=== PATIENT | male | born 1975 | race Caucasian/White ===

== ENCOUNTER 2016-09-05 20:03 | Emergency (ER) | payer OTHER ==
[2016-09-05 20:31] VITALS: BP 121/71; PULSE 64; TEMP 97.8; BMI 25.7
--- NOTE | 2016-09-05 22:24 | PDOC ---
History of Present Illness - General Chief Complaint: Respiratory Stated Complaint: SOB/HEADACHE Time Seen by Provider: 09/05/16 22:23 Past History - Past Medical History Allergies/Adverse Reactions: Allergies Allergy/AdvReac Type Severity Reaction Status Date / Time No Known Drug Allergies Allergy Verified 09/05/16 20:28 Home Medications: Ambulatory Orders NK [No Known Home Medication] 09/05/16 Anemia: No Asthma: No Cancer: No Cardiac Disorders: No CVA: No COPD: No CHF: No Dementia: No Diabetes: No GI Disorders: No Disorders: No HTN: No Hypercholesterolemia: No Liver Disease: No Seizures: No Thyroid Disease: No - Surgical History Abdominal Surgery: No Appendectomy: Yes Cardiac Surgery: No Cholecystectomy: No Lung Surgery: No Neurologic Surgery: No Orthopedic Surgery: No - Immunization History Immunization Up to Date: Yes - Psycho/Social/Smoking Cessation Hx Anxiety: No Suicidal Ideation: No Smoking History: Never smoked Have you smoked in the past 12 months: No Hx Alcohol Use: Yes (SOCIAL) Drug/Substance Use Hx: No Substance Use Type: Alcohol Hx Substance Use Treatment: No *Physical Exam - Vital Signs Last Vital Signs Temp Pulse Resp BP Pulse Ox 97.8 F 64 18 121/71 100 09/05/16 20:29 09/05/16 20:29 09/05/16 20:29 09/05/16 20:29 09/05/16 20:29
[2016-09-05] MEDS ORDERED: IBUPROFEN 600 MG TABLET (FP) PO ONE ×2 (22:32→22:46)
== END 2016-09-05 23:15 | disposition left against medical advice (07) ==
LOC: JER 20:03 → JERFT 20:03 → JER 23:15
DX: Z53.21 Procedure and treatment not carried out due to patient leaving prior to being seen by health care provider (principal)
CPT/HCPCS: 99281-25

== ENCOUNTER 2018-05-21 17:23 | Emergency (ER) | payer OTHER ==
[2018-05-21 17:52] VITALS: TEMP 98.3; BMI 27.9
--- NOTE | 2018-05-21 18:35 | PDOC ---
History of Present Illness - General Chief Complaint: Chest Pain Stated Complaint: CHEST PAIN Time Seen by Provider: 05/21/18 18:05 History Source: Patient Exam Limitations: Language Barrier - History of Present Illness Initial Comments: 05/21/18 18:30 Pt is a previously healthy 42yo m presenting to ED with complaints of R sided chest pain. Pt says pain started last night when he got out of bed and was still present this morning. Pain is sharp, located near the axilla, radiates down R arm and up the back of the neck. Pain is relieved with deep pressure applied to area of pain, worse with inspiration. He had similar pain 2 weeks ago when [place], [place] doctor there but pt says "he did not do anything". He admits to SOB. Denies substernal chest pain, cough, fevers, n/v/d, abdominal pain, syncope, headache, changes in vision, pain/swelling in legs, history of blood clots. He denies history of NV in the family. He had a breast mass biopsy 3 years ago which was not cancerous PCP: Rajani PMH: none PSH: appendectomy. Meds: none Social: denies Allergies: nkda Past History - Past Medical History Allergies/Adverse Reactions: Allergies Allergy/AdvReac Type Severity Reaction Status Date / Time No Known Drug Allergies Allergy Verified 05/21/18 17:48 Home Medications: Ambulatory Orders NK [No Known Home Medication] 09/05/16 Anemia: No Asthma: No Cancer: No Cardiac Disorders: No CVA: No COPD: No CHF: No Dementia: No Diabetes: No GI Disorders: No Disorders: No HTN: No Hypercholesterolemia: No Liver Disease: No Seizures: No Thyroid Disease: No - Surgical History Abdominal Surgery: No Appendectomy: Yes Cardiac Surgery: No Cholecystectomy: No Lung Surgery: No Neurologic Surgery: No Orthopedic Surgery: No - Immunization History Immunization Up to Date: Yes - Suicide/Smoking/Psychosocial Hx Smoking History: Never smoked Have you smoked in the past 12 months: No Information on smoking cessation initiated: No Hx Alcohol Use: No Drug/Substance Use Hx: No Substance Use Type: Alcohol Hx Substance Use Treatment: No Review of Systems - Review of Systems Constitutional: No: Chills, Fever, Weakness HEENTM: No: Recent change in vision, Double Vision, Nose Congestion, Throat Pain Respiratory: Yes: Shortness of Breath. No: Cough, Hemoptysis Cardiac (ROS): Yes: Chest Pain (R sided). No: Lightheadedness, Palpitations, Syncope ABD/GI: No: Constipated, Nausea, Vomiting, Abdominal cramping : No: Dysuria, Flank Pain, Hematuria Musculoskeletal: Yes: Neck Pain (posterior neck pain). No: Back Pain, Joint Pain Neurological: No: Headache, Numbness, Tingling, Weakness, Dizziness Hematologic/Lymphatic: No: Blood Clots *Physical Exam - Vital Signs Last Vital Signs Temp Pulse Resp BP Pulse Ox 98.3 F 75 16 130/95 100 05/21/18 17:50 05/21/18 17:50 05/21/18 17:50 05/21/18 17:50 05/21/18 17:50 - Physical Exam Comments: 05/21/18 18:44 Pt sitting in chair comfortably General Appearance: Yes: Nourished, Appropriately Dressed. No: Apparent Distress ED Treatment Course - LABORATORY CBC & Chemistry Diagram: 05/21/18 18:54 05/21/18 18:54 Medical Decision Making - Medical Decision Making 05/21/18 19:48 acs, pe *DC/Admit/Observation/Transfer Diagnosis at time of Disposition: Chest pain Qualifiers: Chest pain type: unspecified Qualified Code(s): R07.9 - Chest pain, unspecified - Discharge Dispostion Disposition: HOME Condition at time of disposition: Improved Decision to Admit order: No - Referrals Referrals: Jackelyn Gerard MD [Primary Care Provider] - - Patient Instructions Printed Discharge Instructions: DI for Chest Pain Additional Instructions: You were seen here today for evaluation of chest pain. All your tests were normal. You can take Motrin (ibuprofen) for the pain as needed. Please take as directed on the package. Remember to follow up with your doctor for further evaluation and management. Please come back to the emergency room if: chest pain gets worse, you have difficulty breathing, you lose consciousness, you develop headache or if any new concerning symptom develops. Thank you - Post Discharge Activity
--- NOTE | 2018-05-21 18:57 | PDOC ---
Attending Attestation - HPI HPI: 05/21/18 19:36 The patient is a 42 year old male, with a significant past medical history of questionable benign left breast mass, who presents to the emergency department with right axillary pain which radiates slightly to his right anterior chest since last night. He states the pain radiates down his right arm and up his right neck. He states the pain is constant. He reports having a similar episode of pain about 2 weeks ago while in [place] which resolved on its own. He reports his pain is exacerbated with deep inspiration and alleviated slightly with pressing on the chest. He denies taking any OTC medication for pain. The patient denies shortness of breath, headache and dizziness. The patient denies fever, chills, nausea, vomit, diarrhea and constipation. The patient denies dysuria, frequency, urgency and hematuria. Allergies: NKDA Social history: Denies tobacco or ETOH use. - Physicial Exam PE: 05/21/18 19:36 ROS: A complete review of 10 out of 10 review of systems is taken and is negative apart from what is previously mentioned below and in the HPI. GENERAL: Well developed, well nourished. Awake and alert. No acute distress. HEENT: Normocephalic, atraumatic. PERRLA, EOMI. No conjunctival pallor. Sclera are non- icteric. Moist mucous membranes. Oropharynx is clear. NECK: Supple. Full ROM. No JVD. Carotid pulses 2+ and symmetric, without bruits. No thyromegaly. No lymphadenopathy. CARDIOVASCULAR: Regular rate and rhythm. No murmurs, rubs, or gallops. Distal pulses are 2+ and symmetric. PULMONARY: No evidence of respiratory distress. Lungs clear to auscultation bilaterally. No wheezing, rales or rhonchi. ABDOMINAL: Soft. Non-tender. Non-distended. No rebound or guarding. No organomegaly. Normoactive bowel sounds. MUSCULOSKELETAL (+) mild ttp right anterior chest. mild ttp right cervical paraspinal muscle. Normal range of motion at all joints. No bony deformities. No CVA tenderness. EXTREMITIES: No cyanosis. No clubbing. No edema. No calf tenderness. SKIN: Warm and dry. Normal capillary refill. No rashes. No jaundice. NEUROLOGICAL: Alert, awake, appropriate. Cranial nerves 2-12 intact. Normoreflexic in the upper and lower extremities. Normal speech. Toes are down-going bilaterally. PSYCHIATRIC: Cooperative. Good eye contact. Appropriate mood and affect. - Medical Decision Making 05/21/18 19:37 Documentation prepared by Nadya Espinoza, acting as chief medical technologist for Paulina Torres MD <Nadya Espinoza - Last Filed: 05/21/18 19:36> - Resident Resident Name: Lula Worthy - ED Attending Attestation I have performed the following: I have examined & evaluated the patient, The case was reviewed & discussed with the resident, I agree w/resident's findings & plan, Exceptions are as noted - HPI HPI: 05/21/18 18:56 42 yo male has been experiencing rt sided chest pain since last night . He has not taken any OTC meds -the pain is constant -he did take a plane for vacation - Physicial Exam PE: 05/21/18 19:04 wnwd 42 yo male in no acute distress head ncat neck supple lungs cta b/l cvs [id number] no cva tenderness ext no edema neuro axxox3,ambulatory skin warm and dry psych appropriate - Medical Decision Making 05/21/18 21:07 negative d dimer ekg is nsr with no evidence of ischemia labs are unremarkable imp atypical chest pain disp follow w Dr Gerard <Paulina Torres - Last Filed: 05/21/18 21:08>
[2018-05-21] MEDS ORDERED: KETOROLAC TROMETHAMINE 30 MG/1 ML VIAL IVPUSH ONE (19:02)
[2018-05-21 19:07] LABS: BASO % 0.5 % (0-2.0); HEMOGLOBIN 16.1 GM/dL (11.7-16.9); LYMPH % 40.3 % (8-40); MCH 30.1 pg (25.7-33.7); MCHC 33.6 g/dl (32.0-35.9); MEAN CELL VOLUME 89.7 fl (80-96); MEAN PLT VOLUME 7.9 fl (7.5-11.1); MONO % 7.9 % (3.8-10.2); NEUT % 49.3 % (42.8-82.8); PLATELET COUNT 237 K/MM3 (134-434); RBC 5.35 M/mm3 (4.00-5.60); RDW 13.1 % (11.9-15.9); WHITE BLOOD COUNT 8.1 K/mm3 (4.0-10.0)
[2018-05-21] MEDS ORDERED: KETOROLAC TROMETHAMINE 30 MG/1 ML VIAL ONE (19:10)
[2018-05-21] MEDS ORDERED: KETOROLAC TROMETHAMINE 30 MG/1 ML VIAL IM ONE (19:18)
[2018-05-21 19:45] LABS: ALBUMIN 4.2 g/dl (3.4-5.0); ALK PHOS 85 U/L (45-117); ANION GAP 9 MMOL/L (8-16); BILIRUBIN,TOTAL 0.7 mg/dL (0.2-1); BLOOD UREA NITROGEN 12 mg/dL (7-18); CALCIUM 9.6 mg/dL (8.5-10.1); CHLORIDE 107 mmol/L (98-107); CO2 24 mmol/L (21-32); CREATININE 1.2 mg/dL (0.55-1.3); GLUCOSE,RANDOM 82 mg/dL (74-106); SGOT/AST 25 U/L (15-37); SGPT/ALT 21 U/L (13-61); SODIUM 139 mmol/L (136-145); TOT PROT 7.7 g/dl (6.4-8.2)
[2018-05-21 21:11] VITALS: BP 124/94; PULSE 57
--- NOTE | 2018-05-22 15:36 | EKG ---
Test Reason : Blood Pressure : / mmHG Vent. Rate : 065 BPM Atrial Rate : 065 BPM P-R Int : 162 ms QRS Dur : 088 ms QT Int : 390 ms P-R-T Axes : 060 021 016 degrees QTc Int : 405 ms NORMAL SINUS RHYTHM NORMAL ECG WHEN COMPARED WITH ECG OF 02-JUL-2015 19:26, NO SIGNIFICANT CHANGE WAS FOUND Confirmed by JUDE GRIDER MD ([id number]) on 05/22/2018 3:36:02 PM Referred By: Confirmed By:JUDE GRIDER MD
== END 2018-05-21 21:19 | disposition home or self-care (01) ==
LOC: JER 17:23
PROC: 3E0233Z Introduction of Anti-inflammatory into Muscle, Percutaneous Approach (ICD-10-PCS; principal; 2018-05-21)
DX: R07.9 Chest pain, unspecified (principal)
CPT/HCPCS: 36415; 71046-TC-FY; 80053; 84484; 85025; 85379; 93005; 93010; 96372; 99283-25

== ENCOUNTER 2018-11-20 10:17 | Emergency (ER) | payer OTHER ==
[2018-11-20 10:42] VITALS: TEMP 98.5; BMI 28.3
[2018-11-20] MEDS ORDERED: ACETAMINOPHEN 1000 MG/100 ML VIAL (NON FORMULARY) IVPB ONE (11:27)
--- NOTE | 2018-11-20 11:34 | PDOC ---
History of Present Illness - General Chief Complaint: Chest Pain Stated Complaint: CHEST PAIN Time Seen by Provider: 11/20/18 11:18 - History of Present Illness Initial Comments: 11/20/18 12:12 The patient is a 43 year old male, with no significant PMH, who presents to the emergency department for evaluation of 2 episodes of chest and right arm pain. The patient states the first episode happened while he was driving last night around 10pm and the second this morning while he was sleeping. He notes that each lasted about 30 minutes. He reports the pain is located on the right side of his chest as well as his right arm when it happens. Denies pain currently. Pt also reports a similar episode of CP 1 month ago. No treatments tried. Pain is not exertional or made worse by anything. Denies trauma or heavy lifting. Denies recent immobility or travel. Denies family history of cardiac disease or clotting. Denies associated SOB, dizziness, nausea, vomiting, weakness/numbness , headache, abd pain, fevers, chills. Denies dysuria, frequency, urgency and hematuria. Allergies: NKA Social history: denies smoking, drug use PCP: Dr. Gerard Past History - Past Medical History Allergies/Adverse Reactions: Allergies Allergy/AdvReac Type Severity Reaction Status Date / Time No Known Drug Allergies Allergy Verified 11/20/18 10:42 Home Medications: Ambulatory Orders NK [No Known Home Medication] 09/05/16 Anemia: No Asthma: No Cancer: No Cardiac Disorders: No CVA: No COPD: No CHF: No Dementia: No Diabetes: No GI Disorders: No Disorders: No HTN: No Hypercholesterolemia: No Liver Disease: No Seizures: No Thyroid Disease: No - Surgical History Abdominal Surgery: No Appendectomy: Yes Cardiac Surgery: No Cholecystectomy: No Lung Surgery: No Neurologic Surgery: No Orthopedic Surgery: No - Immunization History Immunization Up to Date: Yes - Suicide/Smoking/Psychosocial Hx Smoking History: Never smoked Have you smoked in the past 12 months: No Hx Alcohol Use: No Drug/Substance Use Hx: No Substance Use Type: Alcohol Hx Substance Use Treatment: No Review of Systems - Review of Systems Comments:: 11/20/18 12:24 GENERAL/CONSTITUTIONAL: No fever or chills. No weakness. HEAD, EYES, EARS, NOSE AND THROAT: No change in vision. No ear pain or discharge. No sore throat. GASTROINTESTINAL: No nausea, vomiting, diarrhea or constipation. GENITOURINARY: No dysuria, frequency, or change in urination. CARDIOVASCULAR: (+)right sided chest pain. No shortness of breath. RESPIRATORY: No cough, wheezing, or hemoptysis. MUSCULOSKELETAL: (+)right arm pain No neck or back pain. SKIN: No rash NEUROLOGIC: (No headache, vertigo, loss of consciousness, or change in strength/ sensation. ENDOCRINE: No increased thirst. No abnormal weight change. HEMATOLOGIC/LYMPHATIC: No anemia, easy bleeding, or history of blood clots. ALLERGIC/IMMUNOLOGIC: No hives or skin allergy. *Physical Exam - Vital Signs Last Vital Signs Temp Pulse Resp BP Pulse Ox 98.5 F 61 16 134/78 100 11/20/18 10:40 11/20/18 10:40 11/20/18 10:40 11/20/18 10:40 11/20/18 10:40 - Physical Exam Comments: 11/20/18 12:17 GENERAL: Awake, alert, and fully oriented, in no acute distress. Very well appearing, watching shows on his phone EYES: PERRLA, EOMI, sclera anicteric, conjunctiva clear ENT: Nares patent, oropharynx clear without exudates. Moist mucosa NECK: Normal ROM, supple, no lymphadenopathy, JVD, or masses LUNGS: Breath sounds equal, clear to auscultation bilaterally. No wheezes, and no crackles HEART: Regular rate and rhythm, normal S1 and S2, no murmurs, rubs or gallops. No reproducible pain with palpation ABDOMEN: Soft, nontender, normoactive bowel sounds. No guarding, no rebound. No masses EXTREMITIES: Normal range of motion, no edema. No clubbing or cyanosis. No cords, erythema, or tenderness NEUROLOGICAL: Normal speech, cranial nerves intact, negative pronator drift, 5/ 5 strength in all 4 extremities, normal sensation to light touch in all 4 extremities, normal cerebellar exam, normal gait, normal reflexes and tone. No nystagmus. SKIN: Warm, Dry, normal turgor, no rashes or lesions noted. Heart Score/ECG Review - History History: Slightly suspicious - Electrocardiogram EKG: Normal - Age Age: </= 45 - Risk Factors Based on the list above the patient has:: No risk factors known - Troponin Troponin: </= normal limit - Score Heart Score - Total: 0 #1 11/20/18 11:31 Twelve-lead EKG was performed and reviewed by me. Sinus bradycardia, rate 59. Normal axis. No ST elevations. Isolated T-wave inversion in lead 3. ED Treatment Course - LABORATORY CBC & Chemistry Diagram: 11/20/18 12:34 11/20/18 12:34 - RADIOLOGY Radiology Studies Ordered: Category Date Time Status CHEST PA & LAT [RAD] Stat Radiology 11/20/18 11:27 Ordered Medical Decision Making - Medical Decision Making 11/20/18 11:32 43yo M with no sig PMH presents to the ED with 2 episodes of CP, lasting about 30 mins, radiating to the R shoulder. Vitals and exam unremarkable. EKG wnl. DDx includes MSK pain vs ACS vs PE. Pt is low risk for ACS, heart score is 0. Plan for trop x2, CXR. Meets no PERC criteria, low likelihood PE. Will treat pain, reassess. 11/20/18 14:42 Pt reports no CP, but feels like he has room spinning dizziness when he looks to the left. No associated sxs of headache, N/V, Has had similar sxs before that resolve on their own Rpt neuro exam within normal limits, no nystagmus, neuro intact. Auditory exam wnl. Pt continues to be well appearing and comfortable Likely peripheral vertigo, will treat with meclizine and reassess. Low concern for central vertigo as pt well appearing, neuro intact with minimal sxs 11/20/18 16:57 Complete resolution of room spinning dizziness No CP during 7 hour stay here trop neg x2 Labs and XR otherwise wnl Likely MSK pain, pt to f/u with his PMD within 1-2 days Requests DC home I discussed the physical exam findings, ancillary test results and final diagnoses with the patient. I answered all of the patient's questions. The patient was satisfied with the care received and felt comfortable with the discharge plan and treatment plan. The patient will call their primary care physician within 24 hours to arrange follow-up and will return to the Emergency Department with any new, persistent or worsening symptoms. *DC/Admit/Observation/Transfer Diagnosis at time of Disposition: Chest pain, Dizziness - Discharge Dispostion Disposition: HOME Condition at time of disposition: Stable Decision to Admit order: No - Referrals Referrals: Jackelyn Gerard MD [Primary Care Provider] - - Patient Instructions Printed Discharge Instructions: DI for Chest Pain Additional Instructions: Follow up with Dr. Gerard within 1-2 days Return to the emergency department if you have any new, worsening, or concerning symptoms Print Language: SAMMARINESE - Post Discharge Activity - Attestations Physician Attestion: 11/20/18 17:25 I, Dr. John Child MD, attest that this document has been prepared under my direction and personally reviewed by me in its entirety. I further attest, that it accurately reflects all work, treatment, procedures and medical decision -making performed by me.
[2018-11-20] MEDS ORDERED: ACETAMINOPHEN INJECTION 100 ML IVPB ONE (12:42)
[2018-11-20 12:51] LABS: BASO % 0.8 % (0-2.0); EOS % 3.3 % (0-4.5); HEMATOCRIT 45.5 % (35.4-49); HEMOGLOBIN 15.4 GM/dL (11.7-16.9); LYMPH % 37.1 % (8-40); MCH 31.3 pg (25.7-33.7); MCHC 33.8 g/dl (32.0-35.9); MEAN CELL VOLUME 92.6 fl (80-96); MONO % 9.2 % (3.8-10.2); NEUT % 49.6 % (42.8-82.8); PLATELET COUNT 230 K/MM3 (134-434); RBC 4.91 M/mm3 (4.00-5.60); WHITE BLOOD COUNT 6.3 K/mm3 (4.0-10.0)
[2018-11-20 13:18] LABS: ANION GAP 5 MMOL/L (8-16); BLOOD UREA NITROGEN 13 mg/dL (7-18); CALCIUM 9.8 mg/dL (8.5-10.1); CHLORIDE 103 mmol/L (98-107); CO2 29 mmol/L (21-32); CREATININE 1.1 mg/dL (0.55-1.3); GLUCOSE,RANDOM 93 mg/dL (74-106); POTASSIUM 4.3 mmol/L (3.5-5.1); SODIUM 137 mmol/L (136-145)
[2018-11-20] MEDS ORDERED: KETOROLAC TROMETHAMINE 15 MG/ML VIAL IVPUSH ONE (13:38)
[2018-11-20] MEDS ORDERED: KETOROLAC TROMETHAMINE 15 MG/ML VIAL ONE (14:13)
--- NOTE | 2018-11-20 15:18 | EKG ---
Test Reason : Blood Pressure : / mmHG Vent. Rate : 059 BPM Atrial Rate : 059 BPM P-R Int : 164 ms QRS Dur : 090 ms QT Int : 392 ms P-R-T Axes : 060 029 022 degrees QTc Int : 388 ms SINUS BRADYCARDIA OTHERWISE NORMAL ECG WHEN COMPARED WITH ECG OF 21-MAY-2018 17:41, NO SIGNIFICANT CHANGE WAS FOUND Confirmed by JUDE GRIDER MD ([id number]) on 11/20/2018 3:18:05 PM Referred By: Confirmed By:JUDE GRIDER MD
[2018-11-20] MEDS ORDERED: MECLIZINE HCL 25 MG TABLET (FP) PO ONE (15:34)
[2018-11-20] MEDS ORDERED: MECLIZINE HCL 25 MG TABLET (FP) ONE (15:42)
[2018-11-20 17:57] VITALS: BP 130/94; PULSE 58
== END 2018-11-20 17:57 | disposition home or self-care (01) ==
LOC: JER 10:17
PROC: 3E033NZ Introduction of Analgesics, Hypnotics, Sedatives into Peripheral Vein, Percutaneous Approach (ICD-10-PCS; principal; 2018-11-20)
PROC: 3E0333Z Introduction of Anti-inflammatory into Peripheral Vein, Percutaneous Approach (ICD-10-PCS; 2018-11-20)
DX: R07.9 Chest pain, unspecified (principal)
CPT/HCPCS: 36415; 71046-TC-FY; 80048; 84484; 85025; 93005; 93010; 96374; 96375; 99282-25; J0131

== ENCOUNTER 2019-04-29 18:54 | Emergency (ER) | payer OTHER | END 2019-04-29 23:14 | disposition home or self-care (01) | LOC: JER 18:54 ==

== ENCOUNTER 2019-06-30 11:59 | Emergency (ER) | payer OTHER ==
[2019-06-30 12:09] VITALS: BP 139/77; PULSE 100; TEMP 98; BMI 26.6
--- NOTE | 2019-06-30 12:38 | PDOC ---
History of Present Illness - General Chief Complaint: Lightheaded Stated Complaint: CHEST PAIN Time Seen by Provider: 06/30/19 12:38 History Source: Patient Exam Limitations: No Limitations - History of Present Illness Initial Comments: 43 year old male with no PMH presented to ED for two episodes of room spinning sensation since yesterday. Pt reported when he got up from bed yesterday he began to have room spinning that lasted 30 seconds and then self resolved. He reported today he awoke as normal, then while in the bathroom had another episode of room spinning lasting 30 seconds and then self resolved. Pt reported the second episode is what concerned him and prompted him to come to the ED. Pt denied nausea, vomiting, headache, weakness, numbness, tingling, visual changes , speech changes, gait changes. ROS General: denied fever, chills, generalized weakness. HEENT: denied sore throat, rhinorrhea, ear pain. Cardiovascular: denied chest pain, palpitations, syncope, diaphoresis. Respiratory: denied shortness of breath, cough, sputum production, hemoptysis. Gastrointestinal: denied abdominal pain, nausea, vomiting, diarrhea, constipation, blood in stool. Genitourinary: denied dysuria, increased urinary frequency, hematuria, urinary incontinence, flank pain. Back: denied back pain. Musculoskeletal: denied joint pain, muscle pain, joint swelling. Neurological: admitted to dizziness. denied headache, numbness, tingling, weakness. Integumentary: denied rash, laceration, abrasion. Hematologic/Lymphatic: denied bruising or bleeding. PE Constitutional: Well-nourished, Well-developed, appearing stated age. HEENT: head is normocephalic, atraumatic. EOMI. PERRLA. no nystagmus. TM normal bilaterally, no mass, no erythema, no bulging. Neck: supple. Full ROM. Cardiovascular: regular heart rhythm. no murmurs. no pericardial friction rub. Respiratory: clear to auscultation bilaterally. no crackles, rhonchi or wheezing. no stridor. Gastrointestinal: soft, nontender. normal bowel sounds. no rebound, guarding, masses. Extremities: peripheral pulses intact. no lower extremity edema. Neurological: alert. oriented x3. CN2-12 intact. 5/5 strength all extremities. normal ankle plantar flexion. full sensation all extremities and bilateral face. romberg negative. no ataxia. gait normal. unable to reproduce symptoms with Fidencio Hallpike. Psych: awake, alert, oriented x3. follows commands. answers questions appropriately. Past History - Past Medical History Allergies/Adverse Reactions: Allergies Allergy/AdvReac Type Severity Reaction Status Date / Time No Known Drug Allergies Allergy Verified 06/30/19 12:10 Home Medications: Ambulatory Orders Meclizine HCl 25 mg PO TID PRN #15 tablet 06/30/19 - Immunization History Immunization Up to Date: Yes - Psycho Social/Smoking Cessation Hx Smoking History: Never smoked Have you smoked in the past 12 months: No Hx Alcohol Use: No Drug/Substance Use Hx: No Substance Use Type: Alcohol Hx Substance Use Treatment: No *Physical Exam - Vital Signs Last Vital Signs Temp Pulse Resp BP Pulse Ox 98 F 100 H 18 139/77 98 06/30/19 12:06 06/30/19 12:06 06/30/19 12:06 06/30/19 12:06 06/30/19 12:06 Medical Decision Making - Medical Decision Making 43 year old male with no PMH presented to ED for room spinning sensation occurring twice, each lasting 30 seconds before self resolving. Initial Vital Signs Temp Pulse Resp BP Pulse Ox 98 F 100 H 18 139/77 98 06/30/19 12:06 06/30/19 12:06 06/30/19 12:06 06/30/19 12:06 06/30/19 12:06 Afebrile. Borderline tachycardia. No tachypnea. No hypotension. No hypoxia on room air. Labs ordered: none Imaging ordered: none Medications ordered: Meclizine 25 mg PO once EKG performed at 1204: rate 92, regular rhythm, normal axis, normal intervals, no acute ST changes. Discharge - Discharge Information Problems reviewed: Yes Clinical Impression/Diagnosis: Vertigo Condition: Stable Disposition: HOME - Admission No - Additional Discharge Information Prescriptions: Meclizine HCl 25 mg PO TID PRN #15 tablet PRN Reason: Vertigo - Follow up/Referral Referrals: Jackelyn Gerard MD [Primary Care Provider] - Richie Orourke MD [Staff Physician] - Samuel Swan MD [Staff Physician] - Davon Kelly MD [Staff Physician] - - Patient Discharge Instructions Patient Printed Discharge Instructions: DI for Vertigo, DI for Benign Paroxysmal Positional Vertigo, How to Perform Ritika Maneuver Additional Instructions: Follow up with your primary care doctor within 3 days. Your care is not complete until you follow up. Follow up with a neurologist within 5 days. Your care is not complete until you follow up. I have provided you with referrals for Dr. Orourke and Dr. Swan. Follow up with an ENT doctor within 5 days. Your care is not complete until you follow up. I have provided you with a referral for Dr. Kelly. I have prescribed you a medication to take up to three times a day as needed for room spinning vertigo. I have attached education on physical maneuvers you can perform while the room is spinning to help move the rock inside the ear and stop the dizziness. Return to the Emergency Department for increasing pain, headache, vomiting, room spinning that will not stop, changes to vision/gait/speech, facial drooping , fever, or any other new, worsening or concerning symptoms. - Post Discharge Activity Work/Back to School Note: Back to Work
--- NOTE | 2019-06-30 12:43 | PDOC ---
Attending Attestation - Resident Resident Name: Mindy Moore - ED Attending Attestation I have performed the following: I have examined & evaluated the patient, The case was reviewed & discussed with the resident, I agree w/resident's findings & plan - HPI HPI: 06/30/19 13:01 43 YOM with no significant medical history presenting with vertigo, 2 room spinning episodes, less than 30 seconds yesterday, when he got out of bed, vertigo today this morning also in the bathroom another episode of vertigo. no headache, chest pain, sob, focal paresthesias/weakness. gait stable. no trauma no infectious sx. - Physicial Exam PE: 06/30/19 12:58 Agree with the resident's HPI and PE as documented in the electronic medical record. NAD, well appearing, EOMI, PERRL, bilateral external auditory canal, T.M clear. nl conjunctiva, anicteric; neck supple. lungs clear, RRR, abdomen soft nontender. no rebound, guarding. Back nontender. UPTON x4, no focal neuro deficits. No peripheral edema. normal color for ethnicity, WWP. Alert, oriented to person time and place. CN II-XII grossly intact. Strength prox and distally 5/5 throughout. Sensation grossly intact to light touch. UPTON x4. No cerebellar signs, no dysmetria, bilateral finger to nose equal and symmetric. Speech clear. 06/30/19 13:15 06/30/19 13:17 - Medical Decision Making 06/30/19 12:58 Vital Signs Temp Pulse Resp BP Pulse Ox 98 F 100 H 18 139/77 98 06/30/19 12:06 06/30/19 12:06 06/30/19 12:06 06/30/19 12:06 06/30/19 12:06 Vital signs within normal limits, HR at 100, but does not appear toxic or septic or unwell. patient has normal mental status, neurologically intact, no focal deficits are noted. currently asymptomatic. Gait is stable no evidence of ataxia, symptoms are most consistent with peripheral vertigo based on his clinical history, doubt CVA/central vertigo. Patient without comorbidities and is well-appearing currently. Impression and plan discussed with the patient, discharged with meclizine as needed for vertigo symptoms. Neurology follow-up encouraged, return precautions as discussed including headache, worsening symptoms, vomiting, neurologic changes, altered mental status, seizures, signs of infection. Discharge in stable condition 06/30/19 13:15 06/30/19 13:17 06/30/19 13:18 Heart Score/ECG Review #1 ECG reviewed & interpreted by me at: 12:05 General ECG Interpretation: Sinus Rhythm, Normal Rate, Normal Intervals 06/30/19 12:57 EKG normal sinus rhythm at 92 bpm, no interval abnormalities, narrow QRS, ST and T wave segments and morphology normal. Nonspecific T wave abnormalities in III only
[2019-06-30] MEDS ORDERED: MECLIZINE HCL 25 MG TABLET (FP) PO ONE (13:07)
[2019-06-30] MEDS ORDERED: MECLIZINE HCL 25 MG TABLET (FP) ONE (13:22)
--- NOTE | 2019-07-01 17:06 | EKG ---
Test Reason : Blood Pressure : / mmHG Vent. Rate : 092 BPM Atrial Rate : 092 BPM P-R Int : 158 ms QRS Dur : 084 ms QT Int : 352 ms P-R-T Axes : 066 030 026 degrees QTc Int : 435 ms NORMAL SINUS RHYTHM NORMAL ECG WHEN COMPARED WITH ECG OF 29-APR-2019 18:58, PREMATURE ATRIAL COMPLEXES ARE NO LONGER PRESENT Confirmed by ABEBA CARRERO MD ([id number]) on 07/01/2019 5:06:26 PM Referred By: Confirmed By:ABEBA CARRERO MD
== END 2019-06-30 14:36 | disposition home or self-care (01) ==
LOC: JER 11:59
DX: R42 Dizziness and giddiness (principal)
CPT/HCPCS: 93005; 93010; 99281-25

== ENCOUNTER 2020-12-05 13:26 | Emergency (ER) | payer OTHER ==
[2020-12-05 13:35] VITALS: TEMP 98.1; BMI 26.6
[2020-12-05 15:28] LABS: BASO % 0.3 % (0-2.0); EOS % 1.2 % (0-4.5); HEMATOCRIT 47.5 % (35.4-49); HEMOGLOBIN 15.9 GM/dL (11.7-16.9); LYMPH % 28.2 % (8-40); MCH 30.9 pg (25.7-33.7); MCHC 33.6 g/dl (32.0-35.9); MEAN CELL VOLUME 92.2 fl (80-96); MEAN PLT VOLUME 8.3 fl (7.5-11.1); MONO % 7.8 % (3.8-10.2); NEUT % 62.5 % (42.8-82.8); PLATELET COUNT 255 K/MM3 (134-434); RBC 5.15 M/mm3 (4.00-5.60); WHITE BLOOD COUNT 12.8 K/mm3 (4.0-10.0)
[2020-12-05 15:45] LABS: CHLORIDE 104 mmol/L (98-107); SODIUM 139 mmol/L (136-145)
[2020-12-05 15:47] LABS: CALCIUM 9.8 mg/dL (8.5-10.1)
[2020-12-05 15:48] LABS: ALBUMIN 4.2 g/dl (3.4-5.0); ANION GAP 6 MMOL/L (8-16); BLOOD UREA NITROGEN 13.2 mg/dL (7-18); CO2 29 mmol/L (21-32); GLUCOSE,RANDOM 81 mg/dL (74-106)
[2020-12-05 15:51] LABS: CREATININE 1.2 mg/dL (0.55-1.3); SGOT/AST 16 U/L (15-37); SGPT/ALT 17 U/L (13-61)
[2020-12-05 15:52] LABS: BILIRUBIN,TOTAL 0.7 mg/dL (0.2-1); TOT PROT 7.2 g/dl (6.4-8.2)
[2020-12-05 15:54] LABS: ALK PHOS 101 U/L (45-117)
[2020-12-05 16:36] VITALS: BP 129/95; PULSE 63
== END 2020-12-05 16:36 | disposition home or self-care (01) ==
LOC: JER 13:26
DX: R07.9 Chest pain, unspecified (principal)
CPT/HCPCS: 36415; 71045-TC-FY; 80053; 84484; 85025; 93005; 93010; 99285-25

== ENCOUNTER 2021-09-16 03:47 | Emergency (ER) | payer OTHER ==
[2021-09-16 04:00] VITALS: BMI 25.0
[2021-09-16] MEDS ORDERED: FAMOTIDINE 20 MG/50 ML IVPB 20 MG/50 ML MG IVPB ONE ×2 (04:20→04:24)
[2021-09-16 04:41] LABS: HEMATOCRIT 46.2 % (35.4-49); HEMOGLOBIN 15.4 GM/dL (11.7-16.9); MCH 29.1 pg (25.7-33.7); MCHC 33.3 g/dl (32.0-35.9); MEAN CELL VOLUME 87.4 fl (80-96); MEAN PLT VOLUME 7.8 fl (7.5-11.1); PLATELET COUNT 229 10^3/uL (134-434); RBC 5.29 M/mm3 (4.00-5.60); RDW 14.2 % (11.9-15.9)
[2021-09-16] MEDS ORDERED: ONDANSETRON 4 MG/2 ML VIAL IVPUSH ONE (04:44)
[2021-09-16] MEDS ORDERED: MAG HYDROX/AL HYDROX/SIMETH 30 ML UNIT-DOSE CUP PO ONE (04:44)
[2021-09-16] MEDS ORDERED: ACETAMINOPHEN 1000 MG/100 ML BAG IVPB ONE (04:44)
[2021-09-16] MEDS ORDERED: LACTATED RINGERS SOLUTION 1000 ML INFUS.BAG IV ONE (04:45)
[2021-09-16] MEDS ORDERED: ONDANSETRON 4 MG/2 ML VIAL ONE (04:46)
[2021-09-16] MEDS ORDERED: MAG HYDROX/AL HYDROX/SIMETH 30 ML UNIT-DOSE CUP ONE (04:46)
[2021-09-16] MEDS ORDERED: ACETAMINOPHEN INJECTION 100 ML IVPB ONE (04:46)
[2021-09-16 05:00] LABS: CHLORIDE 103 mmol/L (98-107); SODIUM 141 mmol/L (136-145)
[2021-09-16 05:02] LABS: CALCIUM 9.4 mg/dL (8.5-10.1)
[2021-09-16 05:03] LABS: ALBUMIN 4.1 g/dl (3.4-5.0); ANION GAP 7 MMOL/L (8-16); BLOOD UREA NITROGEN 14.2 mg/dL (7-18); CO2 30 mmol/L (21-32); GLUCOSE,RANDOM 110 mg/dL (74-106); MAGNESIUM 2.4 mg/dL (1.8-2.4)
[2021-09-16 05:06] LABS: CREATININE 1.3 mg/dL (0.55-1.3); SGOT/AST 16 U/L (15-37); SGPT/ALT 17 U/L (13-61)
[2021-09-16 05:07] LABS: TOT PROT 6.9 g/dl (6.4-8.2)
[2021-09-16 05:08] LABS: BILIRUBIN,TOTAL 0.5 mg/dL (0.2-1)
[2021-09-16 05:09] LABS: ALK PHOS 68 U/L (45-117)
[2021-09-16 05:56] LABS: LIPASE 68 U/L (73-393)
[2021-09-16] MEDS ORDERED: SUCRALFATE 1 GM TABLET (FP) PO ONE (05:58)
[2021-09-16] MEDS ORDERED: SUCRALFATE 1 GM TABLET (FP) ONE (06:05)
[2021-09-16 06:25] VITALS: TEMP 98.7
[2021-09-16 10:23] VITALS: BP 148/101; PULSE 87
== END 2021-09-16 10:00 | disposition home or self-care (01) ==
LOC: JER 03:47
PROC: 3E0333Z Introduction of Anti-inflammatory into Peripheral Vein, Percutaneous Approach (ICD-10-PCS; principal; 2021-09-16)
PROC: 3E033GC Introduction of Other Therapeutic Substance into Peripheral Vein, Percutaneous Approach (ICD-10-PCS; 2021-09-16)
PROC: 3E033GC Introduction of Other Therapeutic Substance into Peripheral Vein, Percutaneous Approach (ICD-10-PCS; 2021-09-16)
DX: R10.13 Epigastric pain (principal)
CPT/HCPCS: 36415; 71046-TC-FY; 74177-TC; 80053; 83690; 83735; 84484; 85027; 93005; 93010; 99285-25; J0131; Q9967